=== PATIENT | female | born 2000 | race Caucasian/White ===

== ENCOUNTER 2025-06-15 08:03 | Emergency (ER) | payer OTHER ==
[~2025-06-15] VITALS: Ht 162.6 cm; Wt 73.0 kg
[2025-06-15 08:15] VITALS: O2SAT 99
[2025-06-15] MEDS: KETOROLAC 30MG/ML VIAL IM ONE (09:26)
[2025-06-15] MEDS: DEXAMETHASONE 4MG/ML 1ML VIAL IV ONE (09:36)
[2025-06-15] MEDS ORDERED: AMOX1TAB16 MT (09:37)
[2025-06-15 09:48] VITALS: BP 122/77; PULSE 62; RESP 15; TEMP 36.7; O2SAT 100
== END 2025-06-15 09:55 | disposition home or self-care (01) ==
LOC: ER 08:03
DX: K01.1 Impacted teeth (principal); R13.10 Dysphagia, unspecified
CPT/HCPCS: 99284; 96374; 81025; 96372; J1885; J1100; 99283